=== PATIENT | female | born 1960 | race Caucasian/White ===

== ENCOUNTER → 2016-11-05 | Outpatient (CLI) | payer BC | LOC: WI 15:13 | PROVIDERS: ATTEND Advanced Practice Midwife | DX: Z12.31 Encounter for screening mammogram for malignant neoplasm of breast (principal); Z98.82 Breast implant status | CPT/HCPCS: 77067; G0202 ==

== ENCOUNTER 2016-11-28 15:00 | Emergency (ER) | payer BC ==
[2016-11-28 15:06] VITALS: BP 126/75
--- NOTE | 2016-11-28 15:06 | ER Document Report ---
ED Medical Screen (RME) - General Stated Complaint: FELL/KNEE/BACK PAIN Notes: fell in sep on ice admits to pain in feet, knees, hips, back, shoulders and neck. denies PMH ambulating on her own without difficulty I have greeted and performed a rapid initial assessment of this patient. A comprehensive ED assessment and evaluation of the patient, analysis of test results and completion of the medical decision making process will be conducted by additional ED providers. TRAVEL OUTSIDE OF THE [place] IN LAST 30 DAYS: No - Related Data Allergies/Adverse Reactions: Penicillins Allergy (Verified 11/28/16 15:03) Past Medical History - Immunizations Hx Diphtheria, Pertussis, Tetanus Vaccination: Yes
--- NOTE | 2016-11-28 15:29 | ER Document Report ---
HPI - HPI Patient complains to provider of: back pain Pain Level: 4 Context: 56 yo female c/o pain to back, knees and feet. pt fell on ice 3 mos ago, has been having pain since then. denies radiculopathy, paresthesia, bowel/bladder change. no fever Associated Symptoms: None Exacerbated by: Movement, Walking Relieved by: Denies Similar symptoms previously: No Recently seen / treated by doctor: No - has appointement in december - ROS Systems Reviewed and Negative: Yes All other systems reviewed and negative - REPRODUCTIVE Reproductive: DENIES: : - DERM Skin Color: Normal Past Medical History - General Information source: Patient - Social History Smoking Status: Unknown if Ever Smoked Chew tobacco use (# tins/day): No Frequency of alcohol use: Social Drug Abuse: None Lives with: Family Family History: Reviewed & Not Pertinent Patient has suicidal ideation: No Patient has homicidal ideation: No Renal/ Medical History: Denies: Hx Peritoneal Dialysis - Immunizations Hx Diphtheria, Pertussis, Tetanus Vaccination: Yes Vertical Provider Document - CONSTITUTIONAL Agree With Documented VS: Yes - INFECTION CONTROL TRAVEL OUTSIDE OF THE [place] IN LAST 30 DAYS: No - HEENT HEENT: Atraumatic, PERRLA - NECK Neck: Normal Inspection, Supple - RESPIRATORY Respiratory: Breath Sounds Normal, No Respiratory Distress O2 Sat by Pulse Oximetry: 99 - CARDIOVASCULAR Cardiovascular: Regular Rate, Regular Rhythm - GI/ABDOMEN Gastrointestinal: Abdomen Soft, Abdomen Non-Tender - BACK Back: Abnormal Inspection - generlized spinal and paraspinal tenderness from mid thoracic to lower lumber regions - NEURO Level of Consciousness: Awake, Alert, Appropriate - DERM Integumentary: Warm, Dry Course - Re-evaluation Re-evalutation: 11/28/16 16:02 xray negative. will treat symptomatically. low suspicion for epidural abscess , fracture, cauda equina. pt stable for discharge - Vital Signs Vital signs: Temp Pulse Resp BP Pulse Ox 98.1 F 101 H 18 126/75 H 99 11/28/16 15:05 11/28/16 15:05 11/28/16 15:05 11/28/16 15:05 11/28/16 15:05 Discharge - Discharge Clinical Impression: Back pain Qualifiers: Back pain location: low back pain Chronicity: chronic Back pain laterality: midline Sciatica presence: without sciatica Qualified Code(s): M54.5 - Low back pain Condition: Stable Disposition: HOME, SELF-CARE Instructions: Low Back Pain ([facility]), Muscle Relaxers ([facility]), Ultram ([facility]) Additional Instructions: your xray was negative today take meds as prescribed follow up with your primary care for further evaluation and treatment Prescriptions: Methocarbamol [Robaxin 500 Mg Tablet] 1,000 mg PO Q6 #30 tablet Tramadol HCl [Ultram 50 mg Tablet] 50 mg PO ASDIR PRN #20 tablet PRN Reason:
== END 2016-11-28 16:25 | disposition home or self-care (01) ==
LOC: ER 15:00
DX: M54.5 Low back pain (principal); M25.562 Pain in left knee; M25.561 Pain in right knee; M79.672 Pain in left foot; M79.671 Pain in right foot
CPT/HCPCS: 72110; 99284

== ENCOUNTER 2017-02-02 09:51 | Day surgery (SDC) | payer BC ==
[~2017-02-02 09:51] MED LIST: CLINDAMYCIN 600 MG/D5W RTU 600 MG/50 ML RTUPB IV PRN
[2017-02-02] MEDS ORDERED: FENTANYL CITRATE INJ/PF 100 MCG/2 ML AMPUL ONE (10:14)
[2017-02-02] MEDS ORDERED: MIDAZOLAM 2 MG/2 ML INJ ONE (10:14)
[2017-02-02] MEDS ORDERED: KETAMINE HCL INJ 500 MG/10 ML VIAL ONE (10:14)
[2017-02-02] MEDS ORDERED: EPHEDRINE SULFATE INJ 50 MG/1 ML AMPULE ONE (10:15)
[2017-02-02] MEDS ORDERED: ONDANSETRON HCL INJ/PF 4 MG/2 ML SDV ONE (10:15)
[2017-02-02] MEDS ORDERED: DEXAMETHASONE SOD PHOS INJ 10 MG/1 ML VIAL ONE (10:15)
[2017-02-02] MEDS ORDERED: KETOROLAC TROMETHAMINE 60 MG/2 ML SDV ONE (10:15)
[2017-02-02] MEDS ORDERED: ACETAMINOPHEN 100 ML IV ONE (10:15)
[2017-02-02] MEDS ORDERED: LIDOCAINE 2% INJ-PF (20 MG/ML) 10 ML AMPUL ONE (10:15)
[2017-02-02] MEDS ORDERED: PROPOFOL INJ 200 MG/20 ML VIAL IV ONE (10:16)
[2017-02-02] MEDS ORDERED: BACITRACIN INJ 50,000 UNIT VIAL ONE (10:21)
[2017-02-02] MEDS ORDERED: POLYMYXIN B SULFATE INJ 500000 UNIT VIAL ONE (10:21)
[2017-02-02] MEDS ORDERED: LIDOCAINE 2% INJ (20 MG/ML) 20 ML MDV ONE (10:21)
[2017-02-02] MEDS ORDERED: NORMAL SALINE INJ/PF 0.9% 10 ML SDV ONE (10:21)
[2017-02-02] MEDS ORDERED: BUPIVACAINE HCL 0.5 % INJ/PF 30 ML SDV ONE (10:21)
[2017-02-02] MEDS: DEXAMETHASONE SOD PHOSPHATE INJ 4 MG/1 ML VIAL ONE ×2 (11:40)
[2017-02-02] MEDS: BUPIVACAINE INJ/PF LIPOSOME/PF 266 MG/20 ML SDV INFIL PRN ×2 (11:40)
--- NOTE | 2017-02-02 13:18 | RADIOLOGY REPORT (SQ) ---
EXAM DESCRIPTION: NO CHG FLUORO; FOOT LEFT 2 VIEWS COMPLETED DATE/TIME: 02/02/2017 12:44 pm REASON FOR STUDY: LT FOOT NARINDER BUNIONECTOMY M20.12 HALLUX VALGUS (ACQUIRED), LEFT FOOT COMPARISON: None. FLUOROSCOPY TIME: 12 seconds 2 images saved to PACS. TECHNIQUE: Intra-operative images acquired during surgical procedure to evaluate progress. NUMBER OF IMAGES: 2 images. LIMITATIONS: None. FINDINGS: Bunionectomy with hardware placement in the 1st metatarsal. IMPRESSION: IMAGE(S) OBTAINED DURING PROCEDURE. COMMENT: Quality ID 145: Final reports for procedures using fluoroscopy that document radiation exp osure indices, or exposure time and number of fluorographic images (if radiation exposure indices are not available) Please consult full operative report of the attending physician for description of the procedure. TECHNICAL DOCUMENTATION: JOB ID: [id number] [employer]- All Rights Reserved
--- NOTE | 2017-02-02 13:18 | RADIOLOGY REPORT (SQ) ---
EXAM DESCRIPTION: NO CHG FLUORO; FOOT LEFT 2 VIEWS COMPLETED DATE/TIME: 02/02/2017 12:44 pm REASON FOR STUDY: LT FOOT NARINDER BUNIONECTOMY M20.12 HALLUX VALGUS (ACQUIRED), LEFT FOOT COMPARISON: None. FLUOROSCOPY TIME: 12 seconds 2 images saved to PACS. TECHNIQUE: Intra-operative images acquired during surgical procedure to evaluate progress. NUMBER OF IMAGES: 2 images. LIMITATIONS: None. FINDINGS: Bunionectomy with hardware placement in the 1st metatarsal. IMPRESSION: IMAGE(S) OBTAINED DURING PROCEDURE. COMMENT: Quality ID 145: Final reports for procedures using fluoroscopy that document radiation exp osure indices, or exposure time and number of fluorographic images (if radiation exposure indices are not available) Please consult full operative report of the attending physician for description of the procedure. TECHNICAL DOCUMENTATION: JOB ID: [id number] [employer]- All Rights Reserved
--- NOTE | 2017-02-02 14:09 | SURGICARE DISCHARGE SUMMARY E ---
[facility] Discharge Summary NAME: JAY WILDE AGE: 56Y ADMITTED: 02/02/2017 DISCHARGED: 02/02/2017 OPERATIVE PROCEDURE: Girish bunionectomy with internal screw fixation. POSTOPERATIVE DIAGNOSIS: Hallux abductovalgus left foot. HOSPITAL COURSE: On 02/02/2017, patient admitted to [facility] with complaint of painful left foot and was taken to the operating room where the above procedure was performed. Patient tolerated the procedure and anesthesia well and was later discharged from [facility] with postoperative surgical shoe, postoperative instructions for rest, ice, elevation, and limited weightbearing. She was given prescriptions for Dilaudid 4 mg, #40, and was also given a prescription for Phenergan 25 mg, #20. Patient is given a followup appointment for 5 days in office for a postoperative visit. DICTATING PHYSICIAN: MARIUSZ BRANHAM DPM [id number] PHY#: [id number] ID: [id number] JOB#: [id number] ACCT: [id number] cc:MARIUSZ BRANHAM DPM >
--- NOTE | 2017-02-02 20:23 | SURGICARE OPERATIVE REPORT E ---
[facility] Operative Report NAME: JAY WILDE AGE: 56Y DATE OF SURGERY: 02/02/2017 ROOM: PREOPERATIVE DIAGNOSIS: Hallux abductovalgus of the left foot. POSTOPERATIVE DIAGNOSIS: Hallux abductovalgus of the left foot. OPERATION: Girish bunionectomy with internal screw fixation left foot. SURGEON: MARIUSZ BRANHAM DPM PROCEDURE: On 02/02/2017, the patient was admitted to [facility] with complaint of a painful left foot, was taken to the operating room where following induction of intravenous sedation as well as local anesthesia, the patient's left foot and leg were prepped and draped in the usual sterile manner. Esmarch was applied. The tourniquet was inflated to 250 mmHg. Esmarch was used, sterile draping was completed, and the following procedure was performed. Attention was directed to the dorsal aspect of the patient's first metatarsophalangeal joint where a 4 cm curvilinear incision was placed medial to the long extensor tendon centered approximately at the first metatarsophalangeal joint. It was deepened through subcutaneous tissue and the superficial fascia. All bleeding vessels were clamped, ligated, and Bovied as necessary for hemostasis. The incision was further deepened via sharp and blunt dissection down level of the capsule. Periosteal structures were then sharply incised in a similar fashion. The skin incisions were tracked medially and laterally for preservation. Attention was directed to the first interspace where dissection was carried down to the lateral attachments to the base of the proximal phalanx and then were sharply incised reducing the lateral contracture. Attention was then directed back to the first metatarsophalangeal joint. It was inspected for its articular surfaces. No erosions were identified except on the medial most prominent portion of the first metatarsal shaft. Utilizing a power sagittal saw, the medial eminence was then sharply removed. At that time, an Girish-type osteotomy was performed with the apex distal. It was carried medial and lateral. The head of the first metatarsal was transposed more lateral in position approximately 7 mm in distance. It was slightly impacted on the first metatarsal shaft and then temporarily fixated with a 0.045 K-wire. Fluoroscopic studies were obtained. Positioning was noted to be adequate, and K-wire placement was found to be in good placement. It was determined that a 3.0 x 22 mm cannulated screw was a proper fit. The distal portion was over drilled with a 2.0 cannulated drill bit, and a 22 mm 3.0 cannulated screw was then inserted from dorsal distal and plantar proximal for fixation. The screw was tightened. The osteotomy was noted to be stable and fixated. Wire was removed. Further fluoroscopic study was obtained. The screw was in excellent position. Redundancy of bone on the medial aspect of the first metatarsal shaft was then sharply excised, and the distal portion of the first metatarsal head was likewise additionally excised with the power sagittal saw. All sharp edges were then rasped smoothed. The area was flushed with copious amounts of sterile antibiotic solution. It was inspected for any soft tissue or osseous debris with none being noted. Bone wax was applied to the exposed medullary surfaces. The capsular and periosteal structures were coapted and maintained with a simple interrupted suture of 3-0 Vicryl. It was felt at that time that the long extensor tendon was in a somewhat contracted position. It was felt that EHL lengthening was needed at that time. V-plasty lengthening was then performed and was coapted with 2-0 FiberWire. At that time, it was felt that the hallux was in still a somewhat valgus position. At this time, a medial capsulorrhaphy was then performed. It was coapted and maintained with a horizontal mattress suture of 2-0 FiberWire. The long extensor tendon was transposed more in the midline position, and the extensor sheath was reconstructed in the subcutaneous tissue. The superficial layer of the fascia was then coapted to maintained with a simple suture of 4-0 Vicryl. Prior to the skin incision, Exparel was injected aspen-wound through the wound and subcutaneous tissue using 10 mL. The skin incision was then coapted maintained with a running subcuticular suture of 5-0 Vicryl. At the time that Steri-Strips were applied to the incision, about 1 mL of dexamethasone was then injected periarticular. Sterile dressing consisting of *------*, 4 x 4, Rebel, Kerlix, and Coflex was applied to the patient's left foot. The tourniquet was rapidly deflated. Capillary filling time was noted to be instantaneous to all digits. The patient appeared to tolerate surgery and anesthesia well, *------* and all vital signs stable and was taken to the recovery room to be further monitored by the Anesthesia Department. DICTATING PHYSICIAN: MARIUSZ BRANHAM DPM [id number] [id number] PHY#: [id number] ID: [id number] JOB#: [id number] ACCT: [id number] cc:MARIUSZ BRANHAM DPM >
== END 2017-02-02 13:02 | disposition home or self-care (01) ==
LOC: SC 09:51
PROVIDERS: ATTEND Preventive Medicine Undersea and Hyperbaric Medicine
PROC: 0QBP0ZZ Excision of Left Metatarsal, Open Approach (ICD-10-PCS; principal; 2017-02-02 10:45)
DX: M20.12 Hallux valgus (acquired), left foot (principal); I10 Essential (primary) hypertension; Z88.0 Allergy status to penicillin; Z79.899 Other long term (current) drug therapy; Z87.891 Personal history of nicotine dependence
CPT/HCPCS: 28296; 73620; C1713; C1769; J2250; J3490 ×6; J1100 ×2; J1885; J3010; J2405; J2704; J0131; C9290; 01480

== ENCOUNTER → 2019-08-30 | Outpatient (CLI) | payer BC ==
--- NOTE | 2019-08-30 16:03 | RADIOLOGY REPORT (SQ) ---
EXAM DESCRIPTION: MRI LT LOWER JOINT WITHOUT COMPLETED DATE/TIME: 08/30/2019 3:30 pm REASON FOR STUDY: LEFT HIP PAIN (M25.552) Z12.31 ENCNTR SCREEN MAMMOGRAM FOR MALIGNANT NEOPLASM OF [place] M25.552 PAIN IN LEFT HIP COMPARISON: None. TECHNIQUE: Lefthip images acquired and stored on PACS. Multiplanar images to include fat sensitive s equences as T1, fluid sensitive sequences as T2/STIR and gradient echo sequences. Large FOV fat and f luid sensitive sequences include pelvis and opposite hip. LIMITATIONS: None. FINDINGS: BONE CORTEX AND MARROW: No generalized marrow replacement. No occult fracture. No worriso me bone lesions. TARGETED HIP: FEMORAL HEAD: No occult fracture. No osteophytes or subchondral cysts. Normal sphericity of femoral h ead/neck junction. No acetabular dysplasia. No evidence femoroacetabular impingement. No significant effusion. ACETABULUM: Joint space narrowing. Small osteophytes. LABRUM: Chronic degenerative changes. TROCHANTER: Mild increased T2 signal at the gluteal tendon insertion. No bursal fluid collection. OPPOSITE HIP: Limited evaluation. No worrisome bone lesions. No significant effusion. PELVIS, LOWER LUMBAR SPINE, SACROILIAC JOINTS: PELVIS : No acute findings. L SPINE: Spondylosis. MUSCLES AND SOFT TISSUES: Adductors and piriformis normal. Iliopsoas bursa without fluid. Hamstring attachments without edema or tear. PELVIC SOFT TISSUES: No masses or adenopathy. SCIATIC NERVE: Identified, without masses or abnormal signal. OTHER: No other significant finding. IMPRESSION: 1. Mild tendinosis gluteal tendon insertion. No significant bursal fluid. 2. Mild osteoarthritis. TECHNICAL DOCUMENTATION: JOB ID: [id number]- All Rights Reserved Reading location - IP/workstation name: [email or web address]
--- NOTE | 2019-08-30 18:18 | WOMENS IMAGING REPORT ---
EXAM DESCRIPTION: 3D SCREENING MAMMO BILAT COMPLETED DATE/TIME: 08/30/2019 1:49 pm REASON FOR STUDY: Z12.31 SCREENING MAMMO Z12.31 ENCNTR SCREEN MAMMOGRAM FOR MALIGNANT NEOPLASM OF B RE M25.552 PAIN IN LEFT HIP COMPARISON: 2014, 2016 EXAM PARAMETERS: Standard craniocaudal and mediolateral oblique views of each breast recorded using digital acquisition and breast tomosynthesis. Additional "push-back craniocaudal and mediolateral ob lique images acquired. Read with the assistance of CAD. .[facility] - R2 Route Inspector Version 9.2 LIMITATIONS: None. FINDINGS: IMPLANTS: Bilateral subglandular implants. Findings present which are benign by mammographic criteria. No suspicious masses, calcifications or a rchitectural distortion. Benign mammographic findings may include one or more of the following: Smooth masses, popcorn/rim/co arse calcifications, asymmetries, post-procedure changes, and lesions with long-standing stability. IMPRESSION: BENIGN MAMMOGRAPHIC FINDINGS. BIRADS 2 BREAST DENSITY: b. There are scattered areas of fibroglandular density. BIRAD: ASSESSMENT: 2 BENIGN FINDING(S) RECOMMENDATION: ROUTINE SCREENING Please continue yearly bilateral screening mammography/tomosynthesis in August 2020. COMMENT: The patient has been notified of the results by letter per MQSA requirements. Additional no tification policies are in place for contacting patient with suspicious or incomplete findings. Quality ID #225: [employer] recommends an annual screening mammogram for women aged 40 years or over. This facility utilizes a reminder system to ensure that all patients receive reminder letters, and/or direct phone calls for appointments. This includes reminders for routine scr eening mammograms, diagnostic mammograms, or other Breast Imaging Interventions when appropriate. Th is patient will be placed in the appropriate reminder system. TECHNICAL DOCUMENTATION: FINDING NUMBER: (1) ASSESSMENT: (1) JOB ID: [id number] [employer]- All Rights Reserved Reading location - IP/workstation name: [email or web address]
== END ==
LOC: WI 13:25
PROVIDERS: ATTEND Advanced Practice Midwife
DX: Z12.31 Encounter for screening mammogram for malignant neoplasm of breast (principal); M25.552 Pain in left hip
CPT/HCPCS: 77063; 77067